=== PATIENT | female | born 1945 | race African-American/Black ===

== ENCOUNTER 2017-11-30 09:44 | Emergency (ER) | payer MEDICARE, OTHER ==
--- NOTE | 2017-11-30 10:26 | RAD ---
RIGHT HAND 4TH DIGIT 2 VIEWS: HISTORY: Pain. COMPARISON: None. FINDINGS: No fracture. No cortical irregularity or periosteal reaction. IMPRESSION: Unremarkable right hand 4th digit 2 views. POS: [facility]
== END 2017-11-30 12:02 | disposition home or self-care (01) ==
LOC: ERS 09:44
DX: S63.614A Unspecified sprain of right ring finger, initial encounter (principal); I10 Essential (primary) hypertension; Z79.899 Other long term (current) drug therapy; X50.1XXA Overexertion from prolonged static or awkward postures, initial encounter

== ENCOUNTER 2019-07-13 19:34 | Emergency (ER) | payer MEDICARE, OTHER ==
[2019-07-13] MEDS ORDERED: Ketorolac Tromethamine 60 MG/2 ML VIAL ONE (20:27)
--- NOTE | 2019-07-13 20:50 | RAD ---
EXAM: Single view of the chest HISTORY: Chest pain COMPARISON: 02/24/2007 FINDINGS: Single view of the chest shows an enlarged cardiomediastinal silhouette. There is no eviden ce of consolidation, mass, or pleural effusion. The bones are unremarkable. IMPRESSION: Cardiomegaly
== END 2019-07-13 21:45 | disposition home or self-care (01) ==
LOC: ERS 19:34
DX: S29.011A Strain of muscle and tendon of front wall of thorax, initial encounter (principal); I10 Essential (primary) hypertension; Z79.899 Other long term (current) drug therapy; V49.9XXA Car occupant (driver) (passenger) injured in unspecified traffic accident, initial encounter
CPT/HCPCS: 71045; 96372; J1885

== ENCOUNTER 2019-08-07 09:58 | Outpatient (CLI) | payer MEDICARE, OTHER ==
--- NOTE | 2019-08-07 11:22 | CT ---
Exam: Abdomen CT with and without contrast Pelvic CT with and without contrast HISTORY: Painless hematuria. Gross hematuria. Left lower quadrant pain. COMPARISON: None TECHNIQUE: Abdomen and pelvic CT is performed with and without contrast following urogram protocol. C oronal reformatted images are submitted for interpretation FINDINGS: Lung bases: Dependent atelectatic changes. Heart: Cardiomegaly. No significant pericardial effusion Aorta: Normal caliber. No periaortic fat stranding Liver: Appropriate enhancement. No enhancing masses. Spleen: Appropriate enhancement Pancreas: Appropriate enhancement Adrenal glands: Symmetric enhancement Lymph nodes: No gastrohepatic, retrocrural or periportal lymphadenopathy Portal vein: Patent Gallbladder: Unremarkable Kidneys: Noncontrast: No evidence of nephrolithiasis or perinephric fat stranding. No evidence of hydronephros is. Bilateral ureters have a normal caliber. No hydroureter, periureteral fat stranding or ureterolithiasis. Postcontrast: Symmetric enhancement the kidneys. No evidence of an abnormal enhancing mass. Delayed imaging: There is symmetric excretion into a decompressed intrarenal and extra renal collecti ng system. No filling defects. Incomplete contrast opacification of the right ureter. Mesentery: No mass, nephropathy, free air or free fluid Alimentary canal: Limited evaluation due to lack of oral contrast administration. No evidence of leo l obstruction. The ileocecal junction is normal. Normal caliber appendix. Scattered fecal material in a nondistended/nondilated colon. CT PELVIS: No pelvic mass, lymphadenopathy, free air or free fluid. Surgically absent uterus. Urinary bladder is unremarkable in terms of the mucosa. Contrast opacification does not demonstrate a ny obvious filling defects. No lytic or blastic lesions in the osseous structures IMPRESSION: 1. No evidence of obstructive uropathy. 2. No abnormal enhancing masses with regards to the left and right kidney.
[2019-08-07] MEDS ORDERED: Iopamidol-370 76% 500 ML 1 ML ONE (15:09)
== END 2019-08-07 09:59 | disposition home or self-care (01) ==
LOC: BICCT 09:58
PROVIDERS: ATTEND Family Medicine
DX: R31.0 Gross hematuria (principal)
CPT/HCPCS: 74178; 82565; Q9967

== ENCOUNTER 2021-06-14 09:11 | Outpatient (CLI) | payer MEDICARE ==
[2021-06-14 23:09] LABS: SARS-CoV-2 PCR by NAA Not Detected (NotDetected)
== END 2021-06-14 09:12 | disposition home or self-care (01) ==
LOC: LABBT 09:11
PROVIDERS: ATTEND Internal Medicine Gastroenterology
DX: Z01.812 Encounter for preprocedural laboratory examination (principal); Z12.11 Encounter for screening for malignant neoplasm of colon; Z20.822 Contact with and (suspected) exposure to COVID-19
CPT/HCPCS: U0003; U0005

== ENCOUNTER 2021-06-17 05:59 | Day surgery (SDC) | payer MEDICARE ==
[2021-06-16 10:17] VITALS: BMI 29.2
[2021-06-17] MEDS ORDERED: Lidocaine 1% PF 5 ML VIAL ONE (08:04)
[2021-06-17] MEDS ORDERED: PROPOFOL 200 MG/20 ML VIAL ONE (08:04)
== END 2021-06-17 09:30 | disposition home or self-care (01) ==
LOC: SDC 05:59
PROVIDERS: ATTEND Internal Medicine Gastroenterology
PROC: 0DBL8ZX Excision of Transverse Colon, Via Natural or Artificial Opening Endoscopic, Diagnostic (ICD-10-PCS; principal; 2021-06-17)
DX: D12.3 Benign neoplasm of transverse colon (principal); K57.31 Diverticulosis of large intestine without perforation or abscess with bleeding; K59.00 Constipation, unspecified; Q43.8 Other specified congenital malformations of intestine; K64.9 Unspecified hemorrhoids; I10 Essential (primary) hypertension; K21.9 Gastro-esophageal reflux disease without esophagitis; M81.0 Age-related osteoporosis without current pathological fracture; M06.9 Rheumatoid arthritis, unspecified; J30.9 Allergic rhinitis, unspecified; Z79.899 Other long term (current) drug therapy; Z88.0 Allergy status to penicillin
CPT/HCPCS: 88305; J2704

== ENCOUNTER 2023-01-16 08:56 | Outpatient (CLI) | payer MEDICARE | END 2023-01-16 08:57 | disposition home or self-care (01) | LOC: BICMAMMO 08:56 | PROVIDERS: ATTEND Family Medicine | DX: Z12.31 Encounter for screening mammogram for malignant neoplasm of breast (principal) | CPT/HCPCS: 77063; 77067 ==

== ENCOUNTER 2024-04-11 12:04 | Outpatient (CLI) | payer MEDICARE, OTHER | END 2024-04-11 12:05 | disposition home or self-care (01) | LOC: BICULT 12:04 | PROVIDERS: ATTEND Internal Medicine Nephrology | DX: N18.9 Chronic kidney disease, unspecified (principal) | CPT/HCPCS: 76770 ==

== ENCOUNTER 2024-06-03 13:11 | Outpatient (CLI) | payer MEDICARE | END 2024-06-03 13:12 | disposition home or self-care (01) | LOC: BICMAMMO 13:11 | PROVIDERS: ATTEND Family Medicine | DX: Z12.31 Encounter for screening mammogram for malignant neoplasm of breast (principal) | CPT/HCPCS: 77063; 77067 ==

== ENCOUNTER 2025-06-08 09:44 | Outpatient (CLI) | payer MEDICARE | END 2025-06-08 09:45 | disposition home or self-care (01) | LOC: BICMAMMO 09:44 | PROVIDERS: ATTEND Family Medicine | DX: Z12.31 Encounter for screening mammogram for malignant neoplasm of breast (principal) | CPT/HCPCS: 77063; 77067 ==